=== PATIENT | male | born 1950 | race Two or more races ===

== ENCOUNTER → 2021-08-22 | Outpatient (CLI) | payer OTHER ==
[2021-08-22 10:04] LABS: Albumin 3.4 g/dL (3.4-5.0); Bilirubin, Direct 0.1 mg/dL (0-0.2); Bilirubin, Total 0.3 mg/dL (0.2-1.0); Total Protein 6.9 g/dL (6.4-8.2)
== END | disposition home or self-care (01) ==
LOC: LAB 08:21
PROVIDERS: ATTEND Internal Medicine
DX: E55.9 Vitamin D deficiency, unspecified (principal); E78.5 Hyperlipidemia, unspecified; R73.03 Prediabetes
CPT/HCPCS: 36415; 80061; 80076; 83036

== ENCOUNTER → 2022-02-05 | Outpatient (CLI) | payer OTHER ==
[2022-02-05 12:17] LABS: Potassium 4.7 mmol/L (3.5-5.1)
[2022-02-05 12:20] LABS: BUN/Creatinine Ratio 21.3
== END | disposition home or self-care (01) ==
LOC: LAB 11:14
PROVIDERS: ATTEND Internal Medicine
DX: Z12.11 Encounter for screening for malignant neoplasm of colon (principal); E11.9 Type 2 diabetes mellitus without complications
CPT/HCPCS: 36415; 80048

== ENCOUNTER → 2022-03-05 | Outpatient (CLI) | payer OTHER | END | disposition home or self-care (01) | LOC: LAB 11:28 | PROVIDERS: ATTEND Internal Medicine | DX: Z12.11 Encounter for screening for malignant neoplasm of colon (principal) | CPT/HCPCS: 82270 ==

== ENCOUNTER → 2023-11-03 | Outpatient (CLI) | payer OTHER ==
[2023-11-03 09:49] LABS: Creatinine, Urine 92.02 mg/dL (30.0-125.0)
[2023-11-03 09:51] LABS: Micro Albumin < 3.0 mg/L (<30.0)
== END | disposition home or self-care (01) ==
LOC: LAB 09:16
PROVIDERS: ATTEND Internal Medicine
DX: Z12.5 Encounter for screening for malignant neoplasm of prostate (principal); I10 Essential (primary) hypertension; D64.9 Anemia, unspecified; M17.11 Unilateral primary osteoarthritis, right knee; E11.42 Type 2 diabetes mellitus with diabetic polyneuropathy
CPT/HCPCS: 36415; 82043; 82306; 82570; 83735; 84153; 84443

== ENCOUNTER → 2024-01-27 | Outpatient (CLI) | payer OTHER ==
[2024-01-27 11:04] LABS: Calcium 9.6 mg/dL (8.7-10.4); Chloride 106 mmol/L (98-107); Sodium 138 mmol/L (136-145)
[2024-01-27 11:05] LABS: Anion Gap 6 (5-15); Carbon Dioxide 26 mmol/L (20-31)
[2024-01-27 11:06] LABS: Creatinine, Urine 174.87 mg/dL (30.0-125.0)
[2024-01-27 11:10] LABS: BUN/Creatinine Ratio 20.6 (10.0-20.0); Blood Urea Nitrogen 20 mg/dL (9-23); Glucose 115 mg/dL (74-106)
== END | disposition home or self-care (01) ==
LOC: LAB 10:12
PROVIDERS: ATTEND Internal Medicine
DX: E11.69 Type 2 diabetes mellitus with other specified complication (principal)
CPT/HCPCS: 36415; 80048; 82043; 82570; 83036

== ENCOUNTER → 2024-11-05 | Outpatient (CLI) | payer OTHER ==
[2024-11-05 10:15] LABS: Anion Gap 8 (5-15); Calcium 9.9 mg/dL (8.7-10.4); Carbon Dioxide 27 mmol/L (20-31); Chloride 107 mmol/L (98-107); Potassium 4.3 mmol/L (3.5-5.1); Sodium 142 mmol/L (136-145)
[2024-11-05 10:21] LABS: BUN/Creatinine Ratio 20.4 (10.0-20.0); Blood Urea Nitrogen 19 mg/dL (9-23)
[2024-11-05 10:23] LABS: Glucose 113 mg/dL (74-106)
[2024-11-05 10:41] LABS: Microalb/Creat Ratio, Urine 6.0
== END | disposition home or self-care (01) ==
LOC: LAB 08:57
PROVIDERS: ATTEND Internal Medicine
DX: E11.42 Type 2 diabetes mellitus with diabetic polyneuropathy (principal); E78.5 Hyperlipidemia, unspecified
CPT/HCPCS: 36415; 80048; 82043; 82570; 83036

== ENCOUNTER 2024-12-22 08:50 | Outpatient (CLI) | payer OTHER ==
[2024-12-22 09:48] LABS: Urine Protein, UAD Negative (Negative)
[2024-12-22 09:49] LABS: Hematocrit 40.0 % (41.0-53.0); Hemoglobin 13.9 g/dL (13.5-17.5); Mean Corpuscular Hemoglobin 31.4 pg (28.0-32.0); Mean Corpuscular Volume 90.5 fL (80.0-100.0); Nucleated Red Blood Cells % 0.0 %
[2024-12-22 10:18] LABS: Alanine Aminotransferase 17.0 U/L (7-40); Albumin 4.0 g/dL (3.2-4.8); Alkaline Phosphatase 76.0 U/L (46-116); Bilirubin, Direct 0.1 mg/dL (<0.3); Bilirubin, Total 0.4 mg/dL (0.2-1.0); Cholesterol 170.0 mg/dL (< 200); HDL Cholesterol 49.0 mg/dL (40-59); Total Protein 6.9 g/dL (5.7-8.2); Triglycerides 133.0 mg/dL (< 150)
== END 2024-12-22 17:00 | disposition home or self-care (01) ==
LOC: LAB 08:50
PROVIDERS: ATTEND Internal Medicine
DX: I10 Essential (primary) hypertension (principal); E78.5 Hyperlipidemia, unspecified; R73.03 Prediabetes; R07.9 Chest pain, unspecified
CPT/HCPCS: 36415; 80061; 80076; 81001; 82270; 84443; 85025; 85379

== ENCOUNTER 2025-01-05 09:02 | Outpatient (CLI) | payer OTHER ==
[2025-01-05 09:45] LABS: Alanine Aminotransferase 16 U/L (7-40); Albumin 4.0 g/dL (3.2-4.8); Alkaline Phosphatase 87 U/L (46-116); Anion Gap 9 (5-15); BUN/Creatinine Ratio 20.2 (10.0-20.0); Blood Urea Nitrogen 20 mg/dL (9-23); Calcium 8.9 mg/dL (8.7-10.4); Carbon Dioxide 26 mmol/L (20-31); Chloride 105 mmol/L (98-107); Potassium 4.2 mmol/L (3.5-5.1); Sodium 140 mmol/L (136-145); Total Protein 6.9 g/dL (5.7-8.2)
[2025-01-05 09:46] LABS: Bilirubin, Total 0.3 mg/dL (0.2-1.0)
[2025-01-05 09:48] LABS: Bilirubin, Direct < 0.1 mg/dL (<0.3); Glucose 116 mg/dL (74-106)
== END 2025-01-05 17:00 | disposition home or self-care (01) ==
LOC: LAB 09:02
PROVIDERS: ATTEND Internal Medicine
DX: E78.5 Hyperlipidemia, unspecified (principal)
CPT/HCPCS: 36415; 80053; 80076

== ENCOUNTER 2025-02-23 10:37 | Outpatient (CLI) | payer OTHER ==
[2025-02-23] MEDS ORDERED: BUPIVACAINE HCL 0.25% P/F 10 ML VIAL ONE (11:10)
[2025-02-23] MEDS ORDERED: methylPREDNISolone ACETATE 80 MG/ML VL ONE (11:10)
[2025-02-23] MEDS ORDERED: IOHEXOL 300 MG/ML 100ML BOTTLE IJ ONE (11:10)
[2025-02-23] MEDS ORDERED: LIDOCAINE 2%HCL (LOCAL ANESTH.) INJ 10ml MDV ONE (11:11)
--- NOTE | 2025-02-23 11:53 | DVH ---
US US GUIDANCE FOR NEEDLE PLACEME HISTORY: RIGHT KNEE PATELLAR TENDINITIS COMPARISON: US LT LOWER DVT on DOS: 09/25/23 PROCEDURE: The risks and benefits of the procedure including infection, hemorrhage and technical failure were discussed with the patient, who agreed to proceed. The patient was positioned supine on the fluoroscopy table. Time out was performed. The right knee was localized using ultrasound, and the location on the skin for needle insertion was marked. The region was prepped and draped using routine sterile technique. Approximately 2 cc of lidocaine was injected for local anesthesia. A 22 gauge spinal needle was inserted, and intra-articular location was confirmed by ultrasound. 1 cc of methylprednisolone (80 mg/cc) and 4 cc of Bupivacaine (0.25%) and 5 cc of 2% Lidocaine was then injected without complication. The patient was informed of the temporary precautions to take following the procedure as well as of the potential signs and symptoms which may indicate the need to contact physician, and expressed understanding of this discussion. IMPRESSION: Successful steroid and anesthetic injection of the right knee.
== END 2025-02-23 17:00 | disposition home or self-care (01) ==
LOC: XYW 10:37
PROVIDERS: ATTEND Physician Assistant Medical
DX: M76.51 Patellar tendinitis, right knee (principal)
CPT/HCPCS: 20611; J1010; J2003; J3490; Q9967; 76942

== ENCOUNTER 2025-04-11 12:47 | Outpatient (CLI) | payer OTHER, MEDICAID ==
--- NOTE | 2025-04-11 19:36 | DVH ---
PROCEDURE: NM NM BONE 3 PHASE Exam Date: 04/11/2025 03:01 PM CLINICAL HISTORY: RIGHT KNEE PAIN Comparison Study: None Nuclear Medicine Three-Phase Bone Scan TECHNIQUE: Following the intravenous administration of 22.5 millicuries of technetium 99m MDP dynamic blood flow images and static and blood pool images were obtained. Delayed planar images were obtained at 3 hours. FINDINGS: Mild asymmetric increased activity on blood flow, blood pool and delayed phase images to the right knee. Bilateral knee prosthesis. IMPRESSION: Mild asymmetric increased activity on blood flow, blood pool and delayed phase images to the right knee. This is likely related to inflammatory process and/or increased bone turnover. Differential considerations could include osteomyelitis, fracture, loosening. Clinical correlation advised.
== END 2025-04-11 17:00 | disposition home or self-care (01) ==
LOC: XYW 12:47
PROVIDERS: ATTEND Physician Assistant Medical
DX: M25.561 Pain in right knee (principal)
CPT/HCPCS: 78315; A9503